=== PATIENT | female | born 1955 | race Caucasian/White ===

== ENCOUNTER 2018-08-28 17:14 | Inpatient (IN) | payer OTHER ==
--- NOTE | 2018-08-28 18:17 | PDOC ---
History of Present Illness - General Chief Complaint: Blood Pressure Problem Stated Complaint: HYPOTENSIVE Time Seen by Provider: 08/28/18 17:43 History Source: Patient Exam Limitations: No Limitations - History of Present Illness Initial Comments: 08/28/18 18:02 63 yo F with a hx of HTN presents to the emergency department with low blood pressure via home reading followed by subsequent 2x syncopal events today while at Dr. Holliday. Per the patient, she has been feeling generalized weakness for the past 1 day. She took her blood pressure at home with systolic BPs <100. She recently had her medications changed from lisinopril 10 mg qd to 20 mg qd and hctz 12.5 mg qd to 25 mg. She took her lisinopril today and took half of her HCTZ dose. She denies the following: chest pain, SOB, dehydration, headache, visual disturbance, nausea, vomiting, abdominal pain, coughing, dysuria, hematuria, diarrhea, and leg pain/swelling. Endorses black tarry stools for 1 day but denies sierra hematochezia. Last colonoscopy 11 years ago normal and admits to drinking 1-1.5 bottles of wine on a near daily basis. Allergies: NKDA Social: Endorses tobacco and alcohol use. Denies substance abuse. Surgical history: hysterectomy Past History - Past Medical History Allergies/Adverse Reactions: Allergies Allergy/AdvReac Type Severity Reaction Status Date / Time No Known Allergies Allergy Verified 08/28/18 17:20 Home Medications: Ambulatory Orders Hydrochlorothiazide [Hctz -] 12.5 mg PO DAILY 08/28/18 Lisinopril 20 mg PO DAILY 08/28/18 COPD: No HTN: Yes - Suicide/Smoking/Psychosocial Hx Smoking History: Never smoked Have you smoked in the past 12 months: No Number of Cigarettes Smoked Daily: 20 Information on smoking cessation initiated: No 'Breaking Loose' booklet given: 03/01/14 Hx Alcohol Use: No Drug/Substance Use Hx: No Substance Use Type: Alcohol *Physical Exam - Vital Signs Last Vital Signs Temp Pulse Resp BP Pulse Ox 98.8 F 81 16 76/54 L 98 08/28/18 17:20 08/28/18 17:20 08/28/18 17:20 08/28/18 17:20 08/28/18 17:20 ED Treatment Course - LABORATORY CBC & Chemistry Diagram: 08/28/18 18:40 08/28/18 18:40 Medical Decision Making - Medical Decision Making 08/28/18 63 yo F with a hx of HTN presents to the emergency department with low blood pressure via home reading followed by subsequent 2x syncopal events today while at Dr. Holliday. Initial vitals: 91/58 s/p 1 liter of NS. 103/62 s/p 2 liters of NS. 08/28/18 22:22 08/28/18 22:23 08/28/18 22:23
[2018-08-28] MEDS ORDERED: PANTOPRAZOLE SODIUM 40 MG VIAL IVPUSH ONE (18:58)
[2018-08-28 19:10] LABS: BASO % 0.6 % (0-2.0); HEMATOCRIT 32.3 % (32.4-45.2); LYMPH % 22.9 % (8-40); MCH 34.2 pg (25.7-33.7); MCHC 34.1 g/dl (32.0-36.0); MEAN CELL VOLUME 100.3 fl (80-96); MEAN PLT VOLUME 8.1 fl (7.5-11.1); MONO % 8.3 % (3.8-10.2); NEUT % 67.2 % (42.8-82.8); PLATELET COUNT 319 K/MM3 (134-434); RBC 3.22 M/mm3 (3.60-5.2); RDW 13.3 % (11.6-15.6); WHITE BLOOD COUNT 13.9 K/mm3 (4.0-10.0)
[2018-08-28 19:35] LABS: INR 1.04 (0.83-1.09); PROTHROMBIN TIME (PATIENT) 12.3 SEC (9.7-13.0)
[2018-08-28 20:03] LABS: ALBUMIN 3.4 g/dl (3.4-5.0); ALK PHOS 47 U/L (45-117); ANION GAP 7 MMOL/L (8-16); BILIRUBIN,TOTAL 0.4 mg/dL (0.2-1); BLOOD UREA NITROGEN 39.2 mg/dL (7-18); CALCIUM 8.2 mg/dL (8.5-10.1); CHLORIDE 105 mmol/L (98-107); CO2 25 mmol/L (21-32); CREATININE 0.9 mg/dL (0.55-1.3); GLUCOSE,RANDOM 103 mg/dL (74-106); POTASSIUM 4.2 mmol/L (3.5-5.1); SGOT/AST 14 U/L (15-37); SGPT/ALT 25 U/L (13-61); SODIUM 137 mmol/L (136-145); TOT PROT 5.8 g/dl (6.4-8.2)
[2018-08-28] MEDS ORDERED: PANTOPRAZOLE SODIUM 40 MG/100 ML BAG IVPB ONE (20:17)
[2018-08-28] MEDS ORDERED: SODIUM CHLORIDE 0.9% 500 ML INFUS.BAG IV ONE (21:52)
--- NOTE | 2018-08-28 22:16 | PDOC ---
Documentation entered by Molly Javed SCRIBE, acting as scribe for Tawnya Kerr MD. Tawnya Kerr MD: This documentation has been prepared by the Tegan saunders Xhesika, SCRIBE, under my direction and personally reviewed by me in its entirety. I confirm that the documentation accurately reflects all work, treatment, procedures, and medical decision making performed by me. Attending Attestation - Resident Resident Name: Ranjith Garcia - ED Attending Attestation I have performed the following: I have examined & evaluated the patient, The case was reviewed & discussed with the resident, I agree w/resident's findings & plan, Exceptions are as noted - HPI HPI: 08/28/18 17:58 The patient is a 63 year old female with a significant medical history of hypertension and fibroid who present to the ED with 2 syncopal episodes. The patient states she woke up this morning feeling lightheaded, dizzy, weak, and experiencing dark stools . The patient recently had her medications changed. Lisinopril was increased from 10 mg to 20 mg and her hydrochlorothiazide was increased from 12.5 mg to 20 mg. The patient called her PCP, Dr. Holliday for a visit, and when she went to his office she syncopize while seated on the chair. At the office, the patient was laid flat on the floor, and when they were putting her on a gurney, she syncopize again. The patient was then brought to the ED for further evaluations. The patient denies chest pain, shortness of breath, headache. Denies fever, chills, nausea, vomit, diarrhea and constipation. Denies dysuria, frequency, urgency and hematuria. Allergies: NKA Past surgical history: partial hysterectomy Social history: 47 year a pack a day smoker. Everyday alcohol use (wine) PCP: Dr. Holliday - Physicial Exam PE: 08/28/18 19:36 GENERAL: Awake, alert, and fully oriented, in no acute distress HEAD: No signs of trauma EYES: PERRLA, EOMI, sclera anicteric, conjunctiva clear ENT: Auricles normal inspection, hearing grossly normal, nares patent, oropharynx clear without exudates. Moist mucosa NECK: Normal ROM, supple, no lymphadenopathy, JVD, or masses LUNGS: Breath sounds equal, clear to auscultation bilaterally. No wheezes, and no crackles HEART: Regular rate and rhythm, normal S1 and S2, no murmurs, rubs or gallops ABDOMEN: Soft, nontender, normoactive bowel sounds. No guarding, no rebound. No masses RECTAL EXAM : ++ black tarry stool EXTREMITIES: Normal range of motion, no edema. No clubbing or cyanosis. No cords, erythema, or tenderness NEUROLOGICAL: Cranial nerves II through XII grossly intact. Normal speech, normal gait SKIN: Warm, Dry, normal turgor, no rashes or lesions noted. 08/28/18 21:07 - Medical Decision Making 08/28/18 21:57 this patient has increased her lisinopril and hydrochlorothiazide and was monitoring her blood pressure at home and found that she was hypotensive she called Dr. White's office this morning because she is feeling lightheaded and was seen by them this afternoon. She's not had a witnessed syncopal episode. this 63 yo female had a syncopal episode at Dr Holliday's office and was found to have GI bleed Review of her CBC : no significant anemia at this time first troponin negative pt admitted to telemetry, recommend we do a CBC to check her hemoglobin and hematocrit at this time , although she does not have any sierra melena 08/28/18 22:14
[2018-08-28] MEDS ORDERED: ACETAMINOPHEN 325 MG TABLET (FP) PO PRN (22:35)
--- NOTE | 2018-08-28 22:35 | HP ---
Admitting History and Physical - Primary Care Physician PCP: Washington Holliday - Admission Chief Complaint: syncope History of Present Illness: his is a 63-year-old woman with a history of hypertension who presents to ED via EMS for syncopal episode x 2. Mrs. Infante reports being in her usual state of health until Tuesday afternoon (08/27) around 2pm when she began to feel flushed and fatigue, she thought herself to be dehydrated and started to increase her water intake. She reports no relief in symptoms and was feeling restless in addition to having trouble sleeping that night. Upon awakening the following morning, her symptoms persisted and she noted black tarry stools. Patient then decided to call PCP for evaluation. The patient denies chest pain, shortness of breath, headache. Denies fever, chills, nausea, vomit, diarrhea and constipation. Denies dysuria, frequency, urgency and hematuria. While in her PMDs office she had two syncopal episodes. EMS was activated and pt taken to ED for further management. Upon arrival in ED. BP 62/33mmHg, she was given 1L fluid bolus with increase in BP to 91/58mmHg. HR 79bpm, RR 16, O2 sat 95% TRop x 1 negative EKS: no pathological findings CXR: no acute pathology. PT aggressively fluids resuscitated. Stool + hemoccult blood. Protonix 40mg given IVP H/H stable: Decision made to admit pt for further workup of black stools associated with hypotension and syncope. History Source: Patient, Significant Other Limitations to Obtaining History: No Limitations - Past Medical History Cardiovascular: Yes: HTN Reproductive: Yes: Postmenopausal ...LMP Comment: age 41 ...: No ...: 2 ...Para: 2 - Past Surgical History Past Surgical History: Yes: Hysterectomy (partial) - Advance Directives Advance Directives: Yes: Health Care Proxy (: Walter Leggett [phone]) - Smoking History Smoking history: Never smoked Have you smoked in the past 12 months: No Aproximately how many cigarettes per day: 20 (1PPD x 47yrs) - Alcohol/Substance Use Hx Alcohol Use: Yes Number of Drinks Daily: 3 (3 glasses of red wine daily) History of Substance Use: reports: None - Social History Usual Living Arrangement: Yes: With Spouse ADL: Independent Occupation: unemployed, previously operated a kitchen and bathstore History of Recent Travel: No Home Medications - Allergies Allergies/Adverse Reactions: Allergies Allergy/AdvReac Type Severity Reaction Status Date / Time No Known Allergies Allergy Verified 08/28/18 17:20 - Home Medications Home Medications: Ambulatory Orders Hydrochlorothiazide [Hctz -] 12.5 mg PO DAILY 08/28/18 Lisinopril 20 mg PO DAILY 08/28/18 Family Disease History - Family Disease History Family History: Unremarkable Family Disease History: Other: Sister (alive (58) CAD s/p 4V CABG) Review of Systems - Review of Systems Constitutional: reports: Lethargy, Weakness Eyes: reports: Blurred Vision HENT: reports: No Symptoms Neck: reports: No Symptoms Cardiovascular: reports: No Symptoms Respiratory: reports: No Symptoms Gastrointestinal: reports: Melena Genitourinary: reports: No Symptoms Breasts: reports: No Symptoms Reported Musculoskeletal: reports: No Symptoms Integumentary: reports: No Symptoms Neurological: reports: Change in LOC, Syncope, Weakness Endocrine: reports: Excessive Sweating, Flushing Hematology/Lymphatic: reports: No Symptoms Psychiatric: reports: Altered Sleep Pattern Physical Examination Vital Signs: Vital Signs Temperature 98 F 08/28/18 19:42 Pulse Rate 81 08/28/18 19:42 Respiratory Rate 16 08/28/18 19:42 Blood Pressure 93/53 L 08/28/18 18:30 O2 Sat by Pulse Oximetry (%) 97 08/28/18 19:42 Constitutional: Yes: Well Nourished, No Distress Eyes: Yes: Conjunctiva Clear, EOM Intact, PERRL HENT: Yes: Atraumatic, Normocephalic Neck: Yes: Supple, Trachea Midline Cardiovascular: Yes: Regular Rate and Rhythm Respiratory: Yes: Regular, CTA Bilaterally Gastrointestinal: Yes: Normal Bowel Sounds, Soft, Abdomen, Obese ...Rectal Exam: Yes: Deferred Musculoskeletal: Yes: WNL Extremities: Yes: WNL Edema: No Peripheral Pulses WNL: Yes Peripheral Pulses: Left Radial: 2+, Right Radial: 2+, Left Doralis Pedis: 2+, Right Dorsalis Pedis: 2+ Integumentary: Yes: WNL Neurological: Yes: Oriented ...Motor Strength: WNL Psychiatric: Yes: Alert, Oriented Labs: CBC, BMP 08/28/18 18:40 08/28/18 18:40 Imaging - Results Chest X-ray: Report Reviewed Problem List - Problems (1) Syncope and collapse Assessment/Plan: IV fluid hydration overnight admit to tele serial neuro exam q4hrs Code(s): R55 - SYNCOPE AND COLLAPSE (2) Hypotension Assessment/Plan: hold lisinopril and HCTZ Code(s): I95.9 - HYPOTENSION, UNSPECIFIED (3) Prophylactic measure Assessment/Plan: hold SC heparin SCDs OOB to chair as tolerated fall precautions monitor for GI bleeding Code(s): Z29.9 - ENCOUNTER FOR PROPHYLACTIC MEASURES, UNSPECIFIED (4) Black tarry stools Assessment/Plan: NPO Protonix drip IVF overnight GI consult serial CBC type and screen current Code(s): K92.1 - MELENA Assessment/Plan DISPO: home when stable Code status: Full Visit type - Emergency Visit Emergency Visit: Yes Care time: The patient presented to the Emergency Department on the above date and was hospitalized for further evaluation of their emergent condition. - New Patient This patient is new to me today: Yes Date on this admission: 08/28/18 - Critical Care Critical Care patient: No
[2018-08-28] MEDS: SODIUM CHLORIDE 1,000 ML IV SCH (23:35)
[2018-08-28] MEDS: PANTOPRAZOLE SODIUM 80 MG in SODIUM CHLORIDE 100 ML IVPB SCH (23:35)
[2018-08-28] MEDS ORDERED: PANTOPRAZOLE SODIUM 40 MG VIAL ONE (23:42)
[2018-08-29 00:24] LABS: BASO % 1.1 % (0-2.0); EOS % 1.1 % (0-4.5); HEMATOCRIT 28.2 % (32.4-45.2); HEMOGLOBIN 9.4 GM/dL (10.7-15.3); LYMPH % 31.4 % (8-40); MCHC 33.4 g/dl (32.0-36.0); MEAN CELL VOLUME 101.6 fl (80-96); MONO % 7.7 % (3.8-10.2); NEUT % 58.7 % (42.8-82.8); PLATELET COUNT 265 K/MM3 (134-434); RBC 2.78 M/mm3 (3.60-5.2); RDW 13.4 % (11.6-15.6); WHITE BLOOD COUNT 11.7 K/mm3 (4.0-10.0)
[2018-08-29] MEDS: SODIUM CHLORIDE 1,000 ML IV SCH ×2 (04:28→18:51)
[2018-08-29 05:20] VITALS: BMI 29.2
[2018-08-29] MEDS: PANTOPRAZOLE SODIUM 80 MG in SODIUM CHLORIDE 100 ML IVPB SCH ×3 (05:41→18:43)
--- NOTE | 2018-08-29 09:09 | CON.GI ---
Consult Consult Specialty:: GI Referred by:: Yulia KIRBY Reason for Consultation:: black tarry stool , syncope - History of Present Illness Chief Complaint: lethargic History of Present Illness: 63 year old female with h.o HTN was sent to the hospital due to 3 days history of sever fatigue lethargic and felt like syncope in her pcp office , pt reports blkack tarry stool one time only her pcp increase her lisinopril to 20 from 10 and start her on Hctx last 3 weeks she spend all day out on Tuesday with sever sweating and dehydration she had colonoscopy was done by Dr tillman 10 years ago with 2 polyps removed she denies any pain but she use ASA once and aw hile for headache , very sporadic and not frequent per pt she drink 3 cups of wine daily denies any fever , chilsl, N/V/D/C denies any bright blood in stool or urine denies any chest pain , sob ,palpitation , orthopnea or dyspnea - History Source History Provided By: Patient Limitations to Obtaining History: No Limitations - Past Medical History SIDER: No: Alzheimer's, CVA, Dementia, Migraine, Multiple Sclerosis, Peripheral Neuropathy, Parkinson's, Seizure, Syncope, TIA, Vertigo, Other Cardio/Vascular: Yes: HTN Pulmonary: No: Asthma, Pneumonia, Previously Intubated Gastrointestinal: Yes: Other (black tarry stool ). No: Ascites, Constipation, GERD Renal/: No: Hematuria ...LMP Comment: age 41 ...: No Heme/Onc: Yes: Anemia (macrocytic ) - Past Surgical History Past Surgical History: Yes: Hysterectomy (partial) - Alcohol/Substance Use Hx Alcohol Use: Yes (red wine daily) Number of Drinks Daily: 3 (3 glasses of red wine daily) History of Substance Use: reports: None - Smoking History Smoking history: Current every day smoker Have you smoked in the past 12 months: Yes Aproximately how many cigarettes per day: 20 - Social History ADL: Independent Occupation: unemployed, previously operated a kitchen and bathstore History of Recent Travel: No <Dean Emerson - Last Filed: 08/29/18 14:17> Home Medications <Dean Emerson - Last Filed: 08/29/18 14:17> <Karla Lopez - Last Filed: 08/29/18 18:40> - Allergies Allergies/Adverse Reactions: Allergies Allergy/AdvReac Type Severity Reaction Status Date / Time No Known Allergies Allergy Verified 08/28/18 17:20 - Home Medications Home Medications: Ambulatory Orders Hydrochlorothiazide [Hctz -] 12.5 mg PO DAILY 08/28/18 Lisinopril 20 mg PO DAILY 08/28/18 Family Disease History - Family Disease History Family Disease History: Diabetes: Mother (diet 2 82 sepsis and coma ), Other: Sister (alive (58) CAD s/p 4V CABG) <Dean Emerson - Last Filed: 08/29/18 14:17> Review of Systems - Review of Systems Constitutional: reports: Lethargy, Malaise. denies: Chills, Unintentional Wgt. Loss Eyes: reports: No Symptoms HENT: denies: Difficult Swallowing, Mouth Swelling Neck: denies: Stiffness Cardiovascular: denies: Chest Pain, Palpitations Respiratory: denies: Cough, Exercise Intolerance Gastrointestinal: reports: Melena (one episode of billy tarry stool). denies: Abdominal Pain, Bloating, Constipation, Diarrhea, Dysphagia Genitourinary: denies: Burning, Discharge Neurological: reports: Other (pre syncope). denies: Numbness, Parasthesia Endocrine: reports: Excessive Sweating <KiDean - Last Filed: 08/29/18 14:17> Physical Exam-GI Vital Signs: Vital Signs Temperature 98.4 F 08/29/18 05:15 Pulse Rate 82 08/29/18 05:15 Respiratory Rate 16 08/29/18 05:15 Blood Pressure 112/62 08/29/18 05:15 O2 Sat by Pulse Oximetry (%) 97 08/29/18 05:12 Constitutional: Yes: Well Nourished, No Distress, Calm Eyes: Yes: Conjunctiva Clear HENT: Yes: Atraumatic, Normocephalic Neck: Yes: Supple Cardiovascular: Yes: Regular Rate and Rhythm Respiratory: Yes: CTA Bilaterally Gastrointestinal Inspection: No: Ascites, Distention ...Auscultate: Yes: Normoactive Bowel Sounds ...Palpate: No: Firm/Rigid, Guarding ...Rectal Exam: Yes: Deferred (refuse) Edema: No Peripheral Pulses WNL: Yes Neurological: Yes: Alert, Oriented Labs: CBC, BMP 08/29/18 00:08 08/28/18 18:40 INR, PTT INR 1.04 (0.83-1.09) 08/28/18 18:40 <Dean Emerson - Last Filed: 08/29/18 14:17> Vital Signs: Vital Signs Temperature 98.2 F 08/29/18 09:03 Pulse Rate 73 08/29/18 14:45 Respiratory Rate 20 08/29/18 09:03 Blood Pressure 105/54 L 08/29/18 14:45 O2 Sat by Pulse Oximetry (%) 97 08/29/18 09:00 Labs: CBC, [facility] 08/29/18 09:00 08/29/18 09:00 INR, PTT INR 1.00 (0.83-1.09) 08/29/18 09:00 <Karla Lopez - Last Filed: 08/29/18 18:40> Imaging - Results Chest X-ray: Report Reviewed <Dean Emerson - Last Filed: 08/29/18 14:17> Problem List - Problems (1) Pre-syncope Code(s): R55 - SYNCOPE AND COLLAPSE (2) Anemia Code(s): D64.9 - ANEMIA, UNSPECIFIED (3) Black tarry stools Code(s): K92.1 - MELENA (4) HTN (hypertension) Code(s): I10 - ESSENTIAL (PRIMARY) HYPERTENSION <Dean Emerson - Last Filed: 08/29/18 14:17> Assessment/Plan 63 year old female with h.o HTN presented to ED due to sever lethargic and excessive sweating feel like syncope in her pcp office was found to be hypotensive in ED , pt reports one episode of dark tarry stool. # Black tarry stool : one episode , she denies any bright blood in stool ,or hematemesis denies any NSAIDS use but she use ASA once and a while , she use 2 -3 cups of wine daily , last colonscopy 10 years ago with 2-3 polyps removed , she is due for new colonoscopy but she would rather to do this as out pt , iron studies , FA, b12 could be done as out pt , no weight loss or change in appetite * BUN/Cr > 20/1 , NPO after mid night , clear liquid today , EGD tomorrow to R.O upper GI bleed * PPI drip cont for now * normal transfusion threshold below 7 * cbc monitor q 8hr * clear liquid diet today , NPo after mid night * she is refusing colonoscopy , recommend the pt to follow up out pt with GI and do colonoscopy as well # HTN , currently Hypotension , IV fluids ,hold BP meds for now , lisinopril was double to 20 mg po daily and started on HCTZ 12.5 po daily , might participate with her pre syncope and dehydration and sever sweating # Pre syncope as above # Dehydration on IV fluids # macrocytic anemia likely due to alcohol use no withdrawal symptoms , follow out pt # tobacco use 1 PPD for 74 years # Alcohol use educated about cessation <Dean Emerson - Last Filed: 08/29/18 14:17> PATIENT SEEN AND EXAMINED WITH DR. EMERSON. I AGREE WITH ABOVE ASSESSMENT AND PLAN OUTLINED ABOVE. PPI CLEAR LIQUID DIET / NPO MIDIGHT FOR DIAGNOSTIC EGD WED. SERIAL CBC <Karla Lopez - Last Filed: 08/29/18 18:40>
--- NOTE | 2018-08-29 09:30 | PN ---
Progress Note, Physician - Current Medication List Current Medications: Active Medications Acetaminophen (Tylenol -) 650 mg PO Q6H PRN PRN Reason: PAIN LEVEL 4 - 6 Sodium Chloride (Normal Saline -) 1,000 mls @ 100 mls/hr IV ASDIR [facility] Last Admin: 08/29/18 04:28 Dose: 100 mls/hr Pantoprazole Sodium 80 mg/ (Sodium Chloride) 100 mls @ 10 mls/hr IVPB Q10H [facility] Last Admin: 08/29/18 05:41 Dose: 10 mls/hr - Objective Vital Signs: Vital Signs Temperature 98.4 F 08/29/18 05:15 Pulse Rate 82 08/29/18 05:15 Respiratory Rate 16 08/29/18 05:15 Blood Pressure 112/62 08/29/18 05:15 O2 Sat by Pulse Oximetry (%) 97 08/29/18 05:12 Cardiovascular: Yes: Regular Rate and Rhythm Respiratory: Yes: Regular, CTA Bilaterally Gastrointestinal: Yes: Normal Bowel Sounds, Soft. No: Tenderness Edema: No Neurological: Yes: Alert, Oriented. No: Pre-Existing Deficit, Tremors Labs: CBC, BMP 08/29/18 00:08 08/28/18 18:40 INR, PTT INR 1.04 (0.83-1.09) 08/28/18 18:40 Problem List - Problems (1) Syncope and collapse Assessment/Plan: maybe due to gi bleed IV fluid hydration admit to tele serial neuro exam q4hrs cardio and neuro Code(s): R55 - SYNCOPE AND COLLAPSE (2) GI bleed Assessment/Plan: Took 2 asa on tuesday no other blood thinners NPO Protonix drip IVF GI consult serial CBC type and screen current Code(s): K92.2 - GASTROINTESTINAL HEMORRHAGE, UNSPECIFIED (3) Black tarry stools Assessment/Plan: as above Code(s): K92.1 - MELENA (4) HTN (hypertension) Assessment/Plan: monitor off meds Code(s): I10 - ESSENTIAL (PRIMARY) HYPERTENSION (5) EtOH dependence Assessment/Plan: drinks 2 glasses every night Code(s): F10.20 - ALCOHOL DEPENDENCE, UNCOMPLICATED (6) Tobacco abuse counseling Code(s): Z71.6 - TOBACCO ABUSE COUNSELING
[2018-08-29 09:40] LABS: HEMATOCRIT 27.4 % (32.4-45.2); HEMOGLOBIN 9.4 GM/dL (10.7-15.3); MCH 34.5 pg (25.7-33.7); MCHC 34.5 g/dl (32.0-36.0); MEAN CELL VOLUME 99.9 fl (80-96); MEAN PLT VOLUME 7.8 fl (7.5-11.1); PLATELET COUNT 264 K/MM3 (134-434); RBC 2.74 M/mm3 (3.60-5.2); RDW 13.4 % (11.6-15.6); WHITE BLOOD COUNT 9.7 K/mm3 (4.0-10.0)
[2018-08-29] MEDS ORDERED: PT OWN MED DRAWER 7, Y5N ONE (10:02)
[2018-08-29 10:11] LABS: PROTHROMBIN TIME (PATIENT) 11.8 SEC (9.7-13.0)
[2018-08-29 10:13] LABS: BILIRUBIN,TOTAL 0.6 mg/dL (0.2-1); CALCIUM 7.7 mg/dL (8.5-10.1); CREATININE 0.7 mg/dL (0.55-1.3); MAGNESIUM 2.1 mg/dL (1.8-2.4); PHOSPHOROUS 2.5 mg/dL (2.5-4.9); TOT PROT 5.3 g/dl (6.4-8.2)
[2018-08-29 10:14] LABS: ACTIVATED PTT 31.4 SECONDS (25.2-36.5)
--- NOTE | 2018-08-29 11:59 | CON.CARD ---
Consult Consult Specialty:: Cardiology Referred by:: Dr. Holliday Reason for Consultation:: syncope - History of Present Illness Chief Complaint: syncope History of Present Illness: 63 year old woman with pmh HTN admitted with syncope and black stools found to be anemic. pt seen and examined today in nad. notes feeling dehydrated prior to admission. no chest pain, sob, palpitations - History Source History Provided By: Patient, Medical Record Limitations to Obtaining History: No Limitations - Past Medical History [employer]: No: Alzheimer's, CVA, Dementia, Migraine, Multiple Sclerosis, Peripheral Neuropathy, Parkinson's, Seizure, Syncope, TIA, Vertigo, Other Cardio/Vascular: Yes: HTN Pulmonary: No: Asthma, Pneumonia, Previously Intubated Gastrointestinal: Yes: Other (black tarry stool ). No: Ascites, Constipation, GERD Renal/: No: Hematuria ...LMP Comment: age 41 ...: No - Past Surgical History Past Surgical History: Yes: Hysterectomy (partial) - Alcohol/Substance Use Hx Alcohol Use: Yes (red wine daily) Number of Drinks Daily: 3 (3 glasses of red wine daily) History of Substance Use: reports: None - Smoking History Smoking history: Current every day smoker Have you smoked in the past 12 months: Yes Aproximately how many cigarettes per day: 20 - Social History ADL: Independent Occupation: unemployed, previously operated a kitchen and bathstore History of Recent Travel: No Home Medications - Allergies Allergies/Adverse Reactions: Allergies Allergy/AdvReac Type Severity Reaction Status Date / Time No Known Allergies Allergy Verified 08/28/18 17:20 - Home Medications Home Medications: Ambulatory Orders Hydrochlorothiazide [Hctz -] 12.5 mg PO DAILY 08/28/18 Lisinopril 20 mg PO DAILY 08/28/18 Family Disease History - Family Disease History Family Disease History: Diabetes: Mother (diet 2 82 sepsis and coma ), Other: Sister (alive (58) CAD s/p 4V CABG) Review of Systems - Review of Systems Constitutional: reports: Weakness. denies: No Symptoms, Chills, Diaphoresis, Fever, Lethargy, Loss of Appetite, Malaise, Night Sweats, Unintentional Wgt. Loss, Other Eyes: denies: No Symptoms, Blind Spots, Blurred Vision, Double Vision, Eye Pain , Floaters, Photophobia, Recent Change in Vision, Other HENT: denies: No Symptoms, Difficult Swallowing, Ear Discharge, Ear Pain, Epistaxis, Gingival Bleeding, Hearing Loss, Mouth Swelling, Nasal Congestion, Ocular Prosthesis, Throat Pain, Toothache, Ringing in Ears, Other Neck: denies: No Symptoms, Decreased ROM, Lumps, Pain on Movement, Stiffness, Swollen Glands, Tenderness, Other Cardiovascular: denies: No Symptoms, Chest Pain, Edema, Palpitations, Shortness of Breath, Other Respiratory: denies: No Symptoms, Cough, Exercise Intolerance, Hemoptysis, Orthopnea, PND, Snoring, SOB, SOB on Exertion, Wheezing, Other Gastrointestinal: denies: No Symptoms, Abdominal Pain, Bloating, Constipation, Diarrhea, Dysphagia, Indigestion, Melena, Nausea, Rectal Bleeding, Vomiting, Vomiting Blood, Other Genitourinary: denies: No Symptoms, Burning, Discharge, Dysuria, Flank Pain, Frequency, Hematuria, Incontinence, Lesions, Menses, Pain, Testicular Mass, Testicular Pain, Testicular Swelling, Urgency, Vaginal Bleeding, Other Breasts: denies: No Symptoms Reported, See HPI, Breast Implants, Discharge from Nipple, Lumps, Pain, Skin Changes, Other Musculoskeletal: denies: No Symptoms, Back Pain, Crepitus, Decreased ROM, Extremity Pain, Joint Pain, Joint Swelling, Muscle Pain, Muscle Cramps, Muscle Weakness, Other Integumentary: denies: No Symptoms, Blister, Bruising, Change in Color, Eczema, Erythema, Incision, Lesions, Lump, Pallor, Pruritis, Rash, Wound, Other Neurological: reports: Syncope. denies: No Symptoms, Change in LOC, Change in Speech, Confusion, Dizziness, Headache, Incoordination, Numbness, Parasthesia, Pre-Existing Deficit, Seizure, Tremors, Unsteady Gait, Weakness, Other Endocrine: denies: No Symptoms, Excessive Sweating, Flushing, Increased Hunger, Increased Thirst, Intolerance to Cold, Intolerance to Heat, Unexplained Weight Gain, Unexplained Weight Loss, Other Hematology/Lymphatic: denies: No Symptoms, Easily Bruised, Excessive Bleeding, Swollen Glands, Other Psychiatric: denies: No Symptoms, Altered Sleep Pattern, Anxiety, Depression, Hallucinations, Panic, Paranoia, Suicidal, Other - Risk Factors Known Risk Factors: Yes: Hypertension Vital Signs: Vital Signs Temperature 98.2 F 08/29/18 09:03 Pulse Rate 73 08/29/18 09:03 Respiratory Rate 20 08/29/18 09:03 Blood Pressure 126/60 08/29/18 09:03 O2 Sat by Pulse Oximetry (%) 97 08/29/18 09:00 Constitutional: Yes: No Distress, Calm Eyes: Yes: Conjunctiva Clear, EOM Intact HENT: Yes: Atraumatic, Normocephalic Neck: Yes: Supple, Trachea Midline Respiratory: Yes: Regular, CTA Bilaterally Gastrointestinal: Yes: Normal Bowel Sounds, Soft. No: Distention, Tenderness Renal/: No: WNL Cardiovascular: Yes: Regular Rate and Rhythm. No: Bradycardia, Tachycardia, Pulse Irregular, Gallop, Rub, Varicosities JVD: No Carotid Bruit: No PMI: Non-Displaced Heart Sounds: Yes: S1, S2. No: Split S2, S3, S4, Clicks, Gallop, Rub, Bruit Murmur: No: Systolic Murmur, Diastolic Murmur Musculoskeletal: Yes: WNL Extremities: Yes: WNL Edema: No Peripheral Pulses WNL: Yes Peripheral Pulses: 2+ Left Doralis Pedis, 2+ Right Dorsalis Pedis Neurological: Yes: Alert, Oriented Psychiatric: Yes: Alert, Oriented - Other Data Labs, Other Data: CBC, BMP 08/29/18 09:00 08/29/18 09:00 INR, PTT INR 1.00 (0.83-1.09) 08/29/18 09:00 Troponin, BNP 08/28/18 08/28/18 08/29/18 18:40 18:40 09:00 Troponin I Cancelled < 0.02 0.02 Troponin, BNP 08/28/18 08/28/18 08/29/18 18:40 18:40 09:00 Troponin I Cancelled < 0.02 0.02 no ischemia Imaging - Results Chest X-ray: Report Reviewed, Image Reviewed EKG: Report Reviewed, Image Reviewed Other: Report Reviewed, Image Reviewed (tele-no arrhythmias) Assessment/Plan 63 year old woman with pmh HTN admitted with syncope and black stools found to be anemic. pt seen and examined today in nad. notes feeling dehydrated prior to admission. no chest pain, sob, palpitations Syncope admitted with syncope in the setting of GI bleed and anemia, possible intravascular depletion. No evidence of cardiac source of syncope. No further cardiac testing is needed at this time. Anemia work up, GI work up No signs of ACS No need for additional inpatient cardiac work up at this time. Please call with any questions will see as needed.
--- NOTE | 2018-08-29 14:06 | CONSULT ---
Consult - text type - Consultation Consultation Note: NEUROLOGY CONSULT GREATLY APPRECIATED: Events reviewed and discussed with MILTON Rodriguez. Cardiology and GI consults read and appreciated. 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 On: HCTZ and lisinopril. Admitted after near syncopal episode in PCP office on Tuesday. Pt. reported "lightheadedness" and was lowered to the ground with assist. BP was taken in office and found to be low, so she was transferred from the office by ambulance to the ED. Admits recent increase of lisinopril from 10 to 20 mg and addition of "water pill" caused similar symptoms, so she only took 1/2 pill of HCTZ. Also attributes this to being "out in the sun" for the weekend and "dehydrated" and noted BP checks at home were low also. BP in ED= 66/33. Given IV hydration. Review of systems significant for intermittent headaches approx once a week, relieved with use of Saul aspirin. WBC 13.9 -> 9.7; TSH 1.00; H/H 11/32.3 -> 9.4/27.4; MCV= 100; + stool guiac; Mg 2.1; HgA1c= 5.4% ERUM: T98.2. P 73. BP 112/62. Cor reg. No bruit. Neck supple. Neg SLR. Poor dentition. NEURO: Awake, alert, responsive. [facility]. August 29, 2018. TRUMP CNII-CNXII: EOM's full. Full ballesteros. No facial. Gag ok. Motor: No drift or tremor. Strength normal. Reflexes brisk throughout , except reduced AJ's. Plantars silent. Coordination: No FTN dystaxia. Sensation: Min reduced vibration. Romberg - Gait: Sl wide-based. Can walk on heels, toes. Impression: Essentially normal neurological exam. Presyncope (hypovolemia +/- anemia) ETOH dependence Suggest: Continue hydration and evaluation of anemia. CT of brain (C-) Check Orthostatic BP's Stat BAL, urine toxicology, B12, Iron panel Thiamine 250 mg IVP Q8H x 3 days Observe for increased temperature, tachycardia for signs of ETOH withdrawal Thank you very much, Ibrahima Samson MD
--- NOTE | 2018-08-29 14:41 | EKG ---
Test Reason : Blood Pressure : / mmHG Vent. Rate : 074 BPM Atrial Rate : 074 BPM P-R Int : 136 ms QRS Dur : 080 ms QT Int : 430 ms P-R-T Axes : 064 002 090 degrees QTc Int : 477 ms NORMAL SINUS RHYTHM T WAVE ABNORMALITY, CONSIDER ANTEROLATERAL ISCHEMIA PROLONGED QT ABNORMAL ECG NO PREVIOUS ECGS AVAILABLE Confirmed by Carroll Doss MD ([id number]) on 08/29/2018 2:41:27 PM Referred By: Confirmed By:Carroll Doss MD
[2018-08-29] MEDS: THIAMINE HCL 200 MG/2 ML VIAL IVPB SCH ×2 (16:15→21:59)
[2018-08-29] MEDS ORDERED: PEG 3350/NA SULF BICARB CL/KCL 4000 ML SOLN.RECON PO ONE (16:38)
[2018-08-29] MEDS ORDERED: DULoxetine HCL 20 MG CAPSULE.DR PO ONE ×2 (16:39→22:00)
[2018-08-29 18:47] LABS: COCAINE, UR NEGATIVE ng/ml (CUTOFF=300); METHADONE, UR NEGATIVE ng/ml (CUTOFF=300); OPIATES, URI NEGATIVE ng/ml (CUTOFF=300); PHENCYCLIDINE,URINE NEGATIVE ng/ml (CUTOFF=25); URINE AMPHETAMINES NEGATIVE ng/ml (CUTOFF=500); URINE BARBITURATES NEGATIVE ng/ml (CUTOFF=200); URINE BENZODIAZEPINES NEGATIVE ng/ml (CUTOFF=200)
[2018-08-30 04:07] LABS: SERUM IRON SATURATION 30 % (15-55); TOTAL IRON BINDING CAPACITY 220 ug/dL (250-450)
[2018-08-30] MEDS: PANTOPRAZOLE SODIUM 80 MG in SODIUM CHLORIDE 100 ML IVPB SCH ×2 (04:50→16:05)
[2018-08-30] MEDS: SODIUM CHLORIDE 1,000 ML IV SCH ×2 (04:53→22:03)
[2018-08-30] MEDS: THIAMINE HCL 200 MG/2 ML VIAL IVPB SCH ×3 (05:30→22:02)
--- NOTE | 2018-08-30 10:32 | EKG ---
Test Reason : Blood Pressure : / mmHG Vent. Rate : 078 BPM Atrial Rate : 078 BPM P-R Int : 132 ms QRS Dur : 084 ms QT Int : 444 ms P-R-T Axes : 055 -23 043 degrees QTc Int : 506 ms NORMAL SINUS RHYTHM PROLONGED QT ABNORMAL ECG NO PREVIOUS ECGS AVAILABLE Confirmed by BRISEIDA MAGANA MD ([id number]) on 08/30/2018 10:32:03 AM Referred By: Confirmed By:BRISEIDA MAGANA MD
--- NOTE | 2018-08-30 11:31 | PN ---
Progress Note, Physician Chief Complaint: Seizure x 2 History of Present Illness: EGD today for guaiac positive Seen by GI Pt was seen in the office in the waiting are, when front staff alerted that pt is not feeling well. Upon arrival, pt was diaphoretic and nauseaous. Within 30 seconds pt's eyes rolled back, pt had a convulsive episode for approx 10 secs. Pt regained consciousness with postdrome symptoms of fatigue, fogginess, nausea with an attempt to vomit. Pt was slowly assisted to the floor with legs elevated. BP at that time 86/52. EMS was initiated immediately. During EMS eval , when EMS tried to assist patient to the stretcher, pt had another convulsive episode with same prodorme symptoms with low BP readings of 53/41. - Current Medication List Current Medications: Active Medications Acetaminophen (Tylenol -) 650 mg PO Q6H PRN PRN Reason: PAIN LEVEL 4 - 6 Sodium Chloride (Normal Saline -) 1,000 mls @ 100 mls/hr IV ASDIR [facility] Last Admin: 08/30/18 04:53 Dose: Not Given Pantoprazole Sodium 80 mg/ (Sodium Chloride) 100 mls @ 10 mls/hr IVPB Q10H [facility] Last Admin: 08/30/18 04:50 Dose: 10 mls/hr Thiamine HCl (Vitamin B1 Injection -) 250 mg IVPB TID [facility] Stop: 09/01/18 14:14 Last Admin: 08/30/18 05:30 Dose: 250 mg - Objective Vital Signs: Vital Signs Temperature 98.1 F 08/30/18 06:00 Pulse Rate 72 08/30/18 06:00 Respiratory Rate 18 08/30/18 06:00 Blood Pressure 122/68 08/30/18 06:00 O2 Sat by Pulse Oximetry (%) 95 08/29/18 21:00 Constitutional: Yes: Well Nourished, No Distress, Calm Cardiovascular: Yes: Regular Rate and Rhythm Respiratory: Yes: Regular Gastrointestinal: Yes: WNL Genitourinary: Yes: WNL Musculoskeletal: Yes: WNL Extremities: Yes: WNL Edema: No Peripheral Pulses WNL: Yes Neurological: Yes: Alert, Oriented Psychiatric: Yes: Alert, Oriented Labs: CBC, BMP 08/29/18 09:00 08/29/18 09:00 INR, PTT INR 1.00 (0.83-1.09) 08/29/18 09:00 Problem List - Problems (1) Seizure disorder, secondary Assessment/Plan: 2/2 to hypotensive episode Code(s): G40.909 - EPILEPSY, UNSP, NOT INTRACTABLE, WITHOUT STATUS EPILEPTICUS (2) Anemia Assessment/Plan: -Guaiac positive -GI on board -EGD today -Monitor H/h -Iron levels normal -B12 low- would replenish -Thyroid profile unremarkable Code(s): D64.9 - ANEMIA, UNSPECIFIED (3) GI bleed Assessment/Plan: -Guaiac positive -GI on board -EGD today -Monitor H/h -Iron levels normal -B12 low- would replenish -Thyroid profile unremarkable -PPI BID Code(s): K92.2 - GASTROINTESTINAL HEMORRHAGE, UNSPECIFIED (4) Hypotension Assessment/Plan: -Hold all BP meds -IVF Code(s): I95.9 - HYPOTENSION, UNSPECIFIED Assessment/Plan see problem list
--- NOTE | 2018-08-30 12:16 | PN ---
Progress Note (short form) - Note Progress Note: EGD performed today revealing 2 small clean based antral ulcers. Mild nodularity /erythema seen in gastric body also seen. No old or new blood. Otherwise unremarkable exam. Biopsies taken. Recommendations: -PPI daily -Follow up pathology -Avoid NSAIDs -Resume clear liquid diet and advance as tolerated -Colonoscopy to be scheduled as outpt (no urgency for inpt and pt also refusing , though pt is due for screening purposes) -Discussed with patient after the procedure
--- NOTE | 2018-08-30 14:43 | PN ---
Progress Note (short form) - Note Progress Note: NEUROLOGY PROGRESS: Case discussed with MILTON Rodriguez who obtained additional, eye-witness, history from Candi Grande NP. Ms. Grande was called to see Pt in waiting room as patient c/o diaphoresis and nausea, seated in a chair. Eyes rolled back and a brief convulsion ensued. Then patient was lowered to the floor but BP could not be obtained. Pt awoke, vomited and was rapidly reoriented but amnestic for prodromal symptoms. Another event may have occurred in the ambulance where BP of 60/[address] of head (reviewed): moderate, diffuse atrophy with more prominent midline cerebellar atrophy and subcortical microvascular changes. Today, BP is normal and pulse remains in the 70's. Afebrile. No report of cognitive changes or agitation. IMP: Events are most c/w Convulsive syncope due to hypotension. Normal VS do not suggest ETOH withdrawal at this time. SUGGEST: Observe off AED's. Maintain BP and await GI workup of Guiac + stools and anemia Observe off Librium detox unless tachycardia or cognitive changes should occur. Thank you very much, Ibrahima Samson MD
[2018-08-30] MEDS: CYANOCOBALAMIN (VITAMIN B-12) 1000 MCG/1 ML VIAL IM SCH (15:56)
[2018-08-30] MEDS: PANTOPRAZOLE 40 MG TABLET (FP) PO SCH (22:10)
[2018-08-31] MEDS: THIAMINE HCL 200 MG/2 ML VIAL IVPB SCH ×2 (06:26→13:04)
[2018-08-31 07:01] LABS: BASO % 0.6 % (0-2.0); EOS % 4.4 % (0-4.5); HEMATOCRIT 25.6 % (32.4-45.2); HEMOGLOBIN 8.8 GM/dL (10.7-15.3); LYMPH % 30.7 % (8-40); MCH 34.6 pg (25.7-33.7); MCHC 34.5 g/dl (32.0-36.0); MEAN CELL VOLUME 100.4 fl (80-96); MEAN PLT VOLUME 7.8 fl (7.5-11.1); MONO % 7.7 % (3.8-10.2); NEUT % 56.6 % (42.8-82.8); RBC 2.55 M/mm3 (3.60-5.2); RDW 13.5 % (11.6-15.6); WHITE BLOOD COUNT 8.6 K/mm3 (4.0-10.0)
[2018-08-31 08:12] LABS: PLATELET COUNT 247 K/MM3 (134-434)
--- NOTE | 2018-08-31 09:47 | PATH ---
Surgical Pathology Report Patient Name: MISHEL JASSO [facility]. Rec. #: [id number] /Age/Gender: 1955 (Age: 63) / F Account: [id number] Location: [address] [place] [address]/AD Taken: 08/30/2018 Received: 08/30/2018 Reported: 08/31/2018 Physicians: Sandra Banegas MD Specimen(s) Received A: ANTRUM B: GASTRIC BODY Clinical History Syncope, reported melena Postoperative diagnosis: Antral ulcer Final Diagnosis A. STOMACH, ANTRUM, BIOPSY: GASTRIC ANTRAL MUCOSA WITH MILD CHRONIC GASTRITIS. IMMUNOHISTOCHEMICAL STAIN FOR H. PYLORI IS NEGATIVE. B. STOMACH, GASTRIC BODY, BIOPSY: GASTRIC BODY MUCOSA WITH MODERATE CHRONIC ACTIVE GASTRITIS. IMMUNOHISTOCHEMICAL STAIN FOR H. PYLORI IS POSITIVE (FEW). Electronically Signed Karla Ivan M.D. Gross Description A. Received in formalin, labeled "biopsy antrum" are 2 newby, irregular portions of soft tissue measuring 0.3 and 0.4 cm. in greatest dimension. The specimens are submitted in toto in one cassette. B. Received in formalin, labeled "biopsy gastric body" are 2 newby, irregular portions of soft tissue averaging 0.4 cm. in greatest dimension. The specimens are submitted in toto in one cassette. /08/30/201808/30/2018
[2018-08-31] MEDS: CYANOCOBALAMIN (VITAMIN B-12) 1000 MCG/1 ML VIAL IM SCH (10:57)
[2018-08-31] MEDS: PANTOPRAZOLE 40 MG TABLET (FP) PO SCH (10:57)
[2018-08-31] MEDS ORDERED: PT OWN MED DRAWER 7, Y5N ONE (11:18)
--- NOTE | 2018-08-31 11:26 | PN ---
Progress Note, Physician Chief Complaint: Seizure x 2 History of Present Illness: EGD today for guaiac positive Seen by GI Pt was seen in the office in the waiting are, when front staff alerted that pt is not feeling well. Upon arrival, pt was diaphoretic and nauseaous. Within 30 seconds pt's eyes rolled back, pt had a convulsive episode for approx 10 secs. Pt regained consciousness with postdrome symptoms of fatigue, fogginess, nausea with an attempt to vomit. Pt was slowly assisted to the floor with legs elevated. BP at that time 86/52. EMS was initiated immediately. During EMS eval , when EMS tried to assist patient to the stretcher, pt had another convulsive episode with same prodorme symptoms with low BP readings of 53/41. gradual drop in H/H-dilutional vs blood loss Tele overnight shows HR in 30-40's -seen by cardiology- cleared to be discharged - Current Medication List Current Medications: Active Medications Acetaminophen (Tylenol -) 650 mg PO Q6H PRN PRN Reason: PAIN LEVEL 4 - 6 Cyanocobalamin (Vitamin B12 Injection -) 1,000 mcg IM DAILY [facility] Last Admin: 08/31/18 10:57 Dose: 1,000 mcg Pantoprazole Sodium (Protonix -) 40 mg PO BID [facility] Last Admin: 08/31/18 10:57 Dose: 40 mg Thiamine HCl (Vitamin B1 Injection -) 250 mg IVPB TID [facility] Stop: 09/01/18 14:14 Last Admin: 08/31/18 06:26 Dose: 250 mg - Objective Vital Signs: Vital Signs Temperature 98.7 F 08/31/18 09:00 Pulse Rate 70 08/31/18 09:00 Respiratory Rate 20 08/31/18 09:00 Blood Pressure 124/69 08/31/18 09:00 O2 Sat by Pulse Oximetry (%) 97 08/30/18 20:09 Constitutional: Yes: Well Nourished, No Distress, Calm Cardiovascular: Yes: Regular Rate and Rhythm Respiratory: Yes: Regular Gastrointestinal: Yes: WNL, Normal Bowel Sounds, Soft Genitourinary: Yes: WNL Musculoskeletal: Yes: WNL Extremities: Yes: WNL Edema: No Peripheral Pulses WNL: Yes Neurological: Yes: Alert, Oriented Psychiatric: Yes: Alert, Oriented Labs: CBC, BMP 08/31/18 06:10 08/29/18 09:00 INR, PTT INR 1.00 (0.83-1.09) 08/29/18 09:00 Problem List - Problems (1) Seizure disorder, secondary Assessment/Plan: 2/2 to hypotensive episode Code(s): G40.909 - EPILEPSY, UNSP, NOT INTRACTABLE, WITHOUT STATUS EPILEPTICUS (2) Anemia Assessment/Plan: -Guaiac positive -GI on board -EGD today -Monitor H/h -Iron levels normal -B12 low- would replenish -Thyroid profile unremarkable Code(s): D64.9 - ANEMIA, UNSPECIFIED (3) GI bleed Assessment/Plan: -Guaiac positive -GI on board -EGD today -Monitor H/h outpatient -Iron levels normal -B12 low- would replenish -Thyroid profile unremarkable -PPI BID Code(s): K92.2 - GASTROINTESTINAL HEMORRHAGE, UNSPECIFIED (4) Hypotension Assessment/Plan: -Hold all BP meds -IVF Code(s): I95.9 - HYPOTENSION, UNSPECIFIED Assessment/Plan see problem list
--- NOTE | 2018-08-31 13:50 | PN ---
Progress Note, Physician Chief Complaint: No complaints History of Present Illness: 63 year old woman with pmh HTN admitted with syncope and black stools found to be anemic. pt seen and examined today in nad. notes feeling dehydrated prior to admission. no chest pain, sob, palpitations EGD with two ulcers - Current Medication List Current Medications: Active Medications Acetaminophen (Tylenol -) 650 mg PO Q6H PRN PRN Reason: PAIN LEVEL 4 - 6 Cyanocobalamin (Vitamin B12 Injection -) 1,000 mcg IM DAILY [facility] Last Admin: 08/31/18 10:57 Dose: 1,000 mcg Pantoprazole Sodium (Protonix -) 40 mg PO BID [facility] Last Admin: 08/31/18 10:57 Dose: 40 mg Thiamine HCl (Vitamin B1 Injection -) 250 mg IVPB TID [facility] Stop: 09/01/18 14:14 Last Admin: 08/31/18 13:04 Dose: 250 mg - Objective Vital Signs: Vital Signs Temperature 98.7 F 08/31/18 09:00 Pulse Rate 70 08/31/18 09:00 Respiratory Rate 20 08/31/18 09:00 Blood Pressure 124/69 08/31/18 09:00 O2 Sat by Pulse Oximetry (%) 97 08/31/18 09:00 Constitutional: Yes: No Distress Neck: Yes: Supple Cardiovascular: Yes: Regular Rate and Rhythm, S1, S2. No: JVD, Murmur Respiratory: Yes: CTA Bilaterally Gastrointestinal: Yes: Soft Edema: No Labs: CBC, BMP 08/31/18 06:10 08/29/18 09:00 INR, PTT INR 1.00 (0.83-1.09) 08/29/18 09:00 Problem List - Problems (1) Pre-syncope Code(s): R55 - SYNCOPE AND COLLAPSE Assessment/Plan 63 year old woman with pmh HTN admitted with syncope and black stools found to be anemic. pt seen and examined today in nad. notes feeling dehydrated prior to admission. no chest pain, sob, palpitations Syncope admitted with syncope in the setting of GI bleed and anemia, possible intravascular depletion. No evidence of cardiac source of syncope. No further cardiac testing is needed at this time. EGD with two ulcers and start on PPI. On telemetry when patient sleeping HR 40s and few episodes of missed beats all less than 3 seconds. When awake and moving around HR goes to 80s. No further cardiac testing. Consider sleep study as outpatient. Will f/u with pmd and may need htn meds when her blood count returns to normal.
[2018-08-31 14:35] VITALS: BP 119/72; PULSE 81; TEMP 97.9
== END 2018-08-31 15:02 | disposition home or self-care (01) | DRG 253 ==
LOC: JER 17:14 → JERBED 22:50 → J4S 08-29 04:19
PROVIDERS: ADMIT Family Medicine; ATTEND Family Medicine
PROC: 0DB68ZX Excision of Stomach, Via Natural or Artificial Opening Endoscopic, Diagnostic (ICD-10-PCS; principal; 2018-08-30 12:00)
DX: K92.2 Gastrointestinal hemorrhage, unspecified (principal); R55 Syncope and collapse; F10.20 Alcohol dependence, uncomplicated; F17.210 Nicotine dependence, cigarettes, uncomplicated; E86.0 Dehydration; D64.9 Anemia, unspecified; K29.50 Unspecified chronic gastritis without bleeding; K25.9 Gastric ulcer, unspecified as acute or chronic, without hemorrhage or perforation; I10 Essential (primary) hypertension; I95.9 Hypotension, unspecified
CPT/HCPCS: 36415; 70450-TC; 71045-TC-FY; 80053; 80061; 80307; 82272; 82550; 82607; 82728; 83036; 83540; 83550; 83721; 83735; 84100; 84443; 84484; 85025; 85027; 85610; 85730; 86850; 86900; 86901; 88305-TC; 88342-TC; 93005; 93010; 99285-25; J7030

== ENCOUNTER 2021-03-09 05:12 | Day surgery (SDC) | payer MEDICARE, OTHER ==
[2021-03-03 16:38] VITALS: BMI 29.0
[2021-03-09 09:55] VITALS: PULSE 68
[2021-03-09 10:22] VITALS: BP 113/54; TEMP 98.2
== END 2021-03-09 10:40 | disposition home or self-care (01) ==
LOC: JASU-ENDO 05:12
PROVIDERS: ATTEND Internal Medicine Gastroenterology
PROC: 0DBK8ZX Excision of Ascending Colon, Via Natural or Artificial Opening Endoscopic, Diagnostic (ICD-10-PCS; 2021-03-09)
PROC: 0DBL8ZX Excision of Transverse Colon, Via Natural or Artificial Opening Endoscopic, Diagnostic (ICD-10-PCS; 2021-03-09)
PROC: 0DBP8ZX Excision of Rectum, Via Natural or Artificial Opening Endoscopic, Diagnostic (ICD-10-PCS; 2021-03-09)
PROC: 0DBM8ZX Excision of Descending Colon, Via Natural or Artificial Opening Endoscopic, Diagnostic (ICD-10-PCS; 2021-03-09)
PROC: 0DBN8ZX Excision of Sigmoid Colon, Via Natural or Artificial Opening Endoscopic, Diagnostic (ICD-10-PCS; principal; 2021-03-09 09:00)
DX: Z12.11 Encounter for screening for malignant neoplasm of colon (principal); K62.1 Rectal polyp; D12.2 Benign neoplasm of ascending colon; D12.4 Benign neoplasm of descending colon; D12.5 Benign neoplasm of sigmoid colon; D12.3 Benign neoplasm of transverse colon; Z86.010 Personal history of colon polyps; Z80.0 Family history of malignant neoplasm of digestive organs; K64.8 Other hemorrhoids; K57.30 Diverticulosis of large intestine without perforation or abscess without bleeding
CPT/HCPCS: 88305-TC